=== PATIENT | male | born 1985 | race Hispanic/Latino ===

== ENCOUNTER → 2024-09-02 | Outpatient (CLI) | payer MEDICAID ==
--- NOTE | 2024-09-02 10:30 | HMCIMG ---
LUMBAR W FLEXION/EXTENSION REASON: RIGHT LOW BACK PAIN. COMPARISON: None TECHNIQUE: 5 images of lumbar spine were obtained including flexion and extension views. FINDINGS: There is disc space narrowing at L5-S1 level. There is straightening of normal lordotic lumbar curvature. No loss of vertebral height is seen. IMPRESSION: Findings as described above.
--- NOTE | 2024-09-02 10:33 | HMCIMG ---
LUMBAR SPINE 2-3VWS HISTORY: Right lower back pain COMPARISON: None FINDINGS: 3 images of lumbar spine were obtained. There is straightening of normal lordotic curvature which may be related to muscle spasm or positioning. No loss of vertebral height is seen. No fracture or dislocation is seen. Degenerative changes are seen. IMPRESSION: 1. No fracture is seen.
--- NOTE | 2024-09-02 10:34 | HMCIMG ---
FOOT COMP 3+VWS RT HISTORY: Arthritis COMPARISON: None TECHNIQUE: 3 images of right foot were obtained. FINDINGS: There is a calcaneal spur. There is no acute displaced fracture or dislocation. Degenerative changes are seen. IMPRESSION: 1. Findings as described above.
== END | disposition home or self-care (01) ==
LOC: RAH 09:02
PROVIDERS: ATTEND Physical Medicine & Rehabilitation
DX: M19.071 Primary osteoarthritis, right ankle and foot (principal); M47.816 Spondylosis without myelopathy or radiculopathy, lumbar region; M77.31 Calcaneal spur, right foot; M48.07 Spinal stenosis, lumbosacral region; M54.50 Low back pain, unspecified
CPT/HCPCS: 72100; 72114; 73630

== ENCOUNTER → 2025-04-01 | Outpatient (CLI) | payer MEDICAID ==
--- NOTE | 2025-04-01 14:51 | HMCIMG ---
US ABDOMINAL COMPLETE REASON: Thrombocytopenia, unspecified COMPARISON: None FINDINGS: There is moderate fatty infiltration of the liver. There are no focal mass lesions. Liver is mildly enlarged at 17 cm.There is a normal-appearing gallbladder. Kidneys appear normal in size and appearance. There is no evidence of mass, stone or hydronephrosis. Spleen and common duct appear normal. Aorta and inferior vena cava appear normal. The pancreas appears normal as well. IMPRESSION: 1. Moderate fatty infiltration of the liver which is mildly enlarged at 17 cm. 2. Otherwise normal exam including normal appearance of the spleen.
== END | disposition home or self-care (01) ==
LOC: RAH 08:15
PROVIDERS: ATTEND Internal Medicine
DX: K76.0 Fatty (change of) liver, not elsewhere classified (principal); R16.0 Hepatomegaly, not elsewhere classified; D69.6 Thrombocytopenia, unspecified; D72.819 Decreased white blood cell count, unspecified; R79.89 Other specified abnormal findings of blood chemistry
CPT/HCPCS: 76700

== ENCOUNTER → 2025-07-20 | Outpatient (CLI) | payer MEDICARE ==
--- NOTE | 2025-07-21 12:36 | HMCIMG ---
EXAM: CR Lumbar Spine, 3 views. CLINICAL HISTORY: Pain. COMPARISON: None provided. FINDINGS: Scoliosis of lumbar spine is noted. Osteophytic lipping of articular margin is noted. Generalized osteopenia is seen. L5-S1 intervertebral disc height is reduced. Normal vertebral body heights. No acute fracture. Soft tissues are within normal limits. IMPRESSION: Scoliosis of lumbar spine is noted. Osteophytic lipping of articular margin is noted. Generalized osteopenia is seen. L5-S1 intervertebral disc height is reduced. /[place]
--- NOTE | 2025-07-21 12:36 | HMCIMG ---
EXAM: CR Left Shoulder, 3 views. CLINICAL HISTORY: Pain. COMPARISON: None provided. FINDINGS: No acute fracture or aggressive appearing osseous lesion. Unremarkable joint spaces. The soft tissues are unremarkable. IMPRESSION: 1. No acute bony changes. /[place]
--- NOTE | 2025-07-21 12:36 | HMCIMG ---
EXAM: CR Pelvis and Bilateral Hips, 5 views. CLINICAL HISTORY: Pain. COMPARISON: None provided. FINDINGS: No acute fracture or aggressive appearing osseous lesion. Joint spaces are within normal limits. The soft tissues are unremarkable. IMPRESSION: 1. No acute osseous abnormality. /[place]
--- NOTE | 2025-07-21 12:36 | HMCIMG ---
EXAM: CR Right Foot, 3 views. CLINICAL HISTORY: Pain. COMPARISON: None provided. FINDINGS: Generalized osteopenia is seen. No acute fracture or aggressive appearing osseous lesion. Joint spaces are within normal limits. The soft tissues are unremarkable. IMPRESSION: Generalized osteopenia is seen. No acute osseous abnormality. /[place]
== END | disposition home or self-care (01) ==
LOC: RAH 09:46
PROVIDERS: ATTEND Physical Medicine & Rehabilitation
DX: M19.071 Primary osteoarthritis, right ankle and foot (principal); M85.871 Other specified disorders of bone density and structure, right ankle and foot; M41.86 Other forms of scoliosis, lumbar region; M85.88 Other specified disorders of bone density and structure, other site; M51.370 Other intervertebral disc degeneration, lumbosacral region with discogenic back pain only; G80.1 Spastic diplegic cerebral palsy; M25.512 Pain in left shoulder; M54.9 Dorsalgia, unspecified; W19.XXXA Unspecified fall, initial encounter
CPT/HCPCS: 72114; 73030; 73521; 73630